=== PATIENT | female | born 1990 | race Caucasian/White ===

== ENCOUNTER 2017-04-07 14:00 | Emergency (ER) | payer OTHER ==
[~2017-04-07] VITALS: Ht 160 cm; Wt 106.6 kg
[~2017-04-07 14:00] MED LIST: AMOXICILLIN500 MG PO; AMOXIL500 MG PO; ANAPROX DS550 MG PO; ANUSOL-HC2.5% RC; ATIVAN0.5 MG PO; BACTRIM DS 8001 TA1 PO; BENADRYL ALLERG25 M5 PO; BENADRYL50 MG PO; BIAXIN500 MG PO; BIRTH CONTROL1 EAC1 PO; CIPRO500 MG PO; CLARITIN-D 12 H1 TAB PO; CLARITIN10 MG PO; DAYPRO600 M1 PO; DICYCLOMINE HCL10 MG PO; DOXYCYCLINE HY100 M3 PO; DUONEB 3 MG/3 ML3 M1 INH; ESTRACE1 MG PO; FLAGYL500 MG PO; FLEXERIL10 MG PO; FLOMAX0.4 MG PO; HYDROCODONE BIT1 T11 PO; IBU800 M1 PO; KEFLEX500 MG PO; LIDEX0.05% T; MACROBID100 M1 PO; MOTRIN800 MG PO; NAPROSYN500 MG PO; NKHM; PEN-VEE K500 MG PO; PEPCID AC10 M2 PO; PERCOCET 325 MG1 TA2 PO; PHENERGAN25 M1 PO; PONSTEL250 MG PO; PREDNICOT20 MG PO; PREDNISONE10 MG PO; PROPRANOLOL HYD60 MG PO; PROZAC10 MG PO; ROBAXIN750 MG PO; TRAMADOL HCL50 MG PO; TYLENOL W/CODEI1 TA2 PO; TYLENOL325 M1 PO; TYLENOL325 M2 PO; TYLENOL500 MG PO; ULTRAM50 MG PO; VENLAFAXINE150 MG PO; VICODIN 5/500 505 MG PO; VOLTAREN50 M1 PO; YASMIN 3 MG-0.01 TA1 PO; ZITHROMAX Z PA250 MG PO; ZOFRAN ODT4 MG SL; ZOFRAN4 MG PO; ZOFRAN4 MG SL; [UNRECOGNIZED DRUG - CODE] PO
[2017-04-07 14:05] VITALS: BP 140/102
== END 2017-04-07 16:10 | disposition home or self-care (01) ==
LOC: ED 14:00
DX: R51 Headache (principal); R11.2 Nausea with vomiting, unspecified; Z88.6 Allergy status to analgesic agent

== ENCOUNTER 2017-04-29 18:58 | Emergency (ER) | payer OTHER ==
[~2017-04-29] VITALS: Ht 167.6 cm; Wt 90.7 kg
[2017-04-29 19:05] VITALS: BP 146/100
[2017-04-29] MEDS ORDERED: ROBITUSSIN DM 105 ML PO (20:13)
[2017-04-29] MEDS ORDERED: MEDROL DOSEPAK4 MG PO (20:13)
[2017-04-29] MEDS ORDERED: AMOXICILLIN500 M2 PO (20:13)
== END 2017-04-29 20:17 | disposition home or self-care (01) ==
LOC: ED 18:58
DX: J01.90 Acute sinusitis, unspecified (principal); F17.200 Nicotine dependence, unspecified, uncomplicated; Z88.6 Allergy status to analgesic agent

== ENCOUNTER 2017-09-20 18:02 | Emergency (ER) | payer OTHER ==
[~2017-09-20] VITALS: Ht 160 cm; Wt 104.3 kg
[~2017-09-20 18:02] MED LIST changes: +AMOXICILLIN500 M2 PO; +MEDROL DOSEPAK4 MG PO; +ROBITUSSIN DM 105 ML PO
[2017-09-20] MEDS ORDERED: ROBITUSSIN DM 105 ML PO (19:20)
[2017-09-20] MEDS ORDERED: CLARITIN10 MG PO (19:20)
[2017-09-20] MEDS ORDERED: FLONASE ALLERG9.9 ML NAS (19:20)
[2017-09-20] MEDS ORDERED: PREDNISONE10 MG PO (19:20)
[2017-09-20 19:54] VITALS: BP 120/84
== END 2017-09-20 19:55 | disposition home or self-care (01) ==
LOC: ED 18:02
DX: J20.9 Acute bronchitis, unspecified (principal); R03.0 Elevated blood-pressure reading, without diagnosis of hypertension; F17.200 Nicotine dependence, unspecified, uncomplicated; E66.01 Morbid (severe) obesity due to excess calories; Z90.49 Acquired absence of other specified parts of digestive tract; Z98.51 Tubal ligation status; Z98.890 Other specified postprocedural states; Z79.899 Other long term (current) drug therapy; Z88.5 Allergy status to narcotic agent; Z88.6 Allergy status to analgesic agent

== ENCOUNTER → 2017-09-23 | Outpatient (CLI) | payer OTHER ==
[~2017-09-23] MED LIST changes: +FLONASE ALLERG9.9 ML NAS
== END | disposition home or self-care (01) ==
LOC: ORTHO
DX: M25.532 Pain in left wrist (principal); M25.531 Pain in right wrist; M79.641 Pain in right hand; M79.642 Pain in left hand

== ENCOUNTER 2017-10-31 19:02 | Emergency (ER) | payer OTHER ==
[~2017-10-31] VITALS: Ht 157.4 cm; Wt 102.1 kg
[2017-10-31 19:04] VITALS: BP 134/90
[2017-10-31] MEDS ORDERED: NEURONTIN600 MG PO (20:02)
[2017-11-28] MEDS ORDERED: ZOFRAN4 MG PO (09:18)
[2017-11-28] MEDS ORDERED: NORCO 5-325 TA1 EACH PO (09:18)
== END 2017-10-31 20:16 | disposition home or self-care (01) ==
LOC: ED 19:02
DX: S60.221A Contusion of right hand, initial encounter (principal); Z88.6 Allergy status to analgesic agent; Y04.0XXA Assault by unarmed brawl or fight, initial encounter; Y93.89 Activity, other specified; Y92.89 Other specified places as the place of occurrence of the external cause; Y99.8 Other external cause status

== ENCOUNTER → 2017-11-22 | Outpatient (CLI) | payer OTHER ==
[~2017-11-22] MED LIST changes: +NEURONTIN600 MG PO; +NORCO 5-325 TA1 EACH PO
[2017-11-22 12:25] LABS: BASO # 0.1 10*3/uL (0.0-0.1); BASO % 0.5 % (0.0-1.0); EOS # 0.2 10*3/uL (0.0-0.4); EOS % 1.8 % (1.0-4.0); HEMATOCRIT 45.9 % (37.0-47.0); HEMOGLOBIN 15.6 g/dl (12.0-16.0); LYMPH % 38.4 % (27.0-41.0); MEAN CORPUSCULAR HGB 29.2 pg (27.0-31.0); MONO # 0.7 10*3/uL (0.1-1.0); MONO % 5.1 % (3.0-9.0); NEUT % 53.8 % (47.0-73.0); PLATELET COUNT AUTOMATED 324 10*3/uL (130-400); RED BLOOD COUNT 5.34 10*6/uL (4.10-5.10); RED CELL DISTRI WIDTH 12.2 % (0-14.5)
[2017-11-22 12:35] LABS: BUN 15 mg/dl (7-24); CHLORIDE 105 mmol/L (98-107); CREATININE 0.83 mg/dL (0.55-1.02); POTASSIUM 3.7 mmol/L (3.5-5.1); SODIUM 140 mmol/L (136-145)
== END | disposition home or self-care (01) ==
LOC: LAB 00:01 → ORTHO 04:17
PROVIDERS: Orthopaedic Surgery
DX: Z01.818 Encounter for other preprocedural examination (principal); G56.01 Carpal tunnel syndrome, right upper limb

== ENCOUNTER → 2017-11-28 | Day surgery (SDC) | payer OTHER ==
[2017-11-21 13:30] VITALS: BP 147/100
[~2017-11-28] VITALS: Ht 157.4 cm; Wt 104.3 kg
[2017-11-28] VITALS (9 sets, daily range): BP systolic 126–141; BP diastolic 82–99
[2017-11-28 07:41] LABS: HEMATOCRIT 43.3 % (37.0-47.0); HEMOGLOBIN 15.2 g/dl (12.0-16.0); MEAN CELL VOLUME 84.4 fl (81.0-99.0); MEAN CORPUSCULAR HGB 29.6 pg (27.0-31.0); MEAN CORPUSCULAR HGB CONC 35.1 g/dl (33.0-37.0); MEAN PLATELET VOLUME 9.1 fl (9.6-12.3); PLATELET COUNT AUTOMATED 274 10*3/uL (130-400); RED BLOOD COUNT 5.13 10*6/uL (4.10-5.10); RED CELL DISTRI WIDTH 12.3 % (0-14.5)
[2017-11-28 07:58] LABS: ATYPICAL LYMPHS 1 % (0-0); TOTAL CELLS COUNTED 100 #CELLS
[2017-11-28 07:59] LABS: PLATELET SUFFICIENCY NORMAL (NORMAL)
== END | disposition home or self-care (01) ==
LOC: SDC 11-21 12:30
PROVIDERS: Orthopaedic Surgery
DX: G56.01 Carpal tunnel syndrome, right upper limb (principal); I10 Essential (primary) hypertension; F32.9 Major depressive disorder, single episode, unspecified; F41.9 Anxiety disorder, unspecified; F17.210 Nicotine dependence, cigarettes, uncomplicated; E66.01 Morbid (severe) obesity due to excess calories; Z90.49 Acquired absence of other specified parts of digestive tract; Z98.890 Other specified postprocedural states; Z88.8 Allergy status to other drugs, medicaments and biological substances; Z90.710 Acquired absence of both cervix and uterus; Z79.899 Other long term (current) drug therapy; Z68.41 Body mass index [BMI] 40.0-44.9, adult; Z82.3 Family history of stroke; Z82.49 Family history of ischemic heart disease and other diseases of the circulatory system; Z83.3 Family history of diabetes mellitus

== ENCOUNTER 2018-01-30 10:24 | Emergency (ER) | payer OTHER ==
[~2018-01-30] VITALS: Ht 157.4 cm; Wt 99.8 kg
[2018-01-30 10:25] VITALS: BP 138/103
[2018-01-30] MEDS ORDERED: PREDNISONE1 MG PO (10:32)
[2018-01-30] MEDS ORDERED: ZITHROMAX1 GM PO (10:32)
[2018-01-30] MEDS ORDERED: PREDNISONE20 M1 PO (12:28)
== END 2018-01-30 12:44 | disposition home or self-care (01) ==
LOC: ED 10:24
DX: J45.909 Unspecified asthma, uncomplicated (principal); E66.01 Morbid (severe) obesity due to excess calories; F17.200 Nicotine dependence, unspecified, uncomplicated; Z88.6 Allergy status to analgesic agent; Z79.2 Long term (current) use of antibiotics; Z79.899 Other long term (current) drug therapy; Z90.49 Acquired absence of other specified parts of digestive tract; Z98.51 Tubal ligation status; Z90.721 Acquired absence of ovaries, unilateral

== ENCOUNTER 2018-04-08 07:17 | Inpatient (IN) | payer OTHER ==
[~2018-04-08] VITALS: Ht 157.4 cm; Wt 117.1 kg
[~2018-04-08 07:17] MED LIST changes: +PREDNISONE1 MG PO; +PREDNISONE20 M1 PO; +ZITHROMAX1 GM PO
[2018-04-08 07:19] VITALS: BP 153/109
[2018-04-08 07:27] VITALS: BP 136/80
[2018-04-08 07:33] LABS: BILIRUBIN NEGATIVE (NEGATIVE); BLOOD NEGATIVE (NEGATIVE); CLARITY SL CLOUDY (CLEAR); COLOR YELLOW (YELLOW); GLUCOSE NEGATIVE (NEGATIVE); KETONE NEGATIVE (NEGATIVE); LEUKO ESTERASE NEGATIVE (NEGATIVE); NITRITE NEGATIVE (NEGATIVE); SPECIFIC GRAVITY >= 1.030 (1.005-1.030); UROBILINOGEN 0.2 E.U./dl (0.2-1.0)
[2018-04-08 07:49] LABS: BACTERIA TRACE; MUCOUS 1+; WBC 0-2 wbc/hpf (0-5)
[2018-04-08 08:35] LABS: BASO # 0.1 10*3/uL (0.0-0.1); BASO % 0.5 % (0.0-1.0); EOS # 0.2 10*3/uL (0.0-0.4); EOS % 1.5 % (1.0-4.0); HEMATOCRIT 44.6 % (37.0-47.0); HEMOGLOBIN 15.7 g/dl (12.0-16.0); LYMPH # 4.9 10*3/uL (1.3-4.4); LYMPH % 37.5 % (27.0-41.0); MEAN CELL VOLUME 85.1 fl (81.0-99.0); MEAN CORPUSCULAR HGB CONC 35.2 g/dl (33.0-37.0); MEAN PLATELET VOLUME 9.2 fl (9.6-12.3); MONO # 0.6 10*3/uL (0.1-1.0); MONO % 4.4 % (3.0-9.0); NEUT # 7.3 10*3/uL (2.3-7.9); NEUT % 55.9 % (47.0-73.0); PLATELET COUNT AUTOMATED 307 10*3/uL (130-400); RED BLOOD COUNT 5.24 10*6/uL (4.10-5.10); RED CELL DISTRI WIDTH 12.2 % (0-14.5); WHITE BLOOD COUNT 13.1 10*3/uL (4.8-10.8)
[2018-04-08 08:54] LABS: ALBUMIN 3.8 gm/dl (3.1-4.5); ALKALINE PHOSPHATASE 131 U/L (45-117); BUN 18 mg/dl (7-24); CHLORIDE 105 mmol/L (98-107); CREATININE 0.77 mg/dL (0.55-1.02); LIPASE 139 U/L (73-393); POTASSIUM 4.1 mmol/L (3.5-5.1); SGOT/AST 20 IU/L (3-35); SGPT/ALT 44 U/L (12-78); SODIUM 136 mmol/L (136-145); TOTAL PROTEIN 7.8 gm/dL (6.4-8.2)
[2018-04-08 10:24] VITALS: BP 113/81
[2018-04-08 12:08] VITALS: BP 116/78
[2018-04-08 12:30] VITALS: BP 105/63
[2018-04-08 20:00] VITALS: BP 134/100
[2018-04-09] VITALS: BP 128/89
[2018-04-09 06:28] LABS: BASO % 0.5 % (0.0-1.0); EOS # 0.2 10*3/uL (0.0-0.4); EOS % 1.9 % (1.0-4.0); LYMPH % 37.3 % (27.0-41.0); MEAN CELL VOLUME 86.6 fl (81.0-99.0); MEAN CORPUSCULAR HGB 29.2 pg (27.0-31.0); MEAN CORPUSCULAR HGB CONC 33.8 g/dl (33.0-37.0); MEAN PLATELET VOLUME 9.3 fl (9.6-12.3); MONO # 0.4 10*3/uL (0.1-1.0); MONO % 5.2 % (3.0-9.0); NEUT # 4.4 10*3/uL (2.3-7.9); PLATELET COUNT AUTOMATED 262 10*3/uL (130-400); RED BLOOD COUNT 4.62 10*6/uL (4.10-5.10); RED CELL DISTRI WIDTH 12.3 % (0-14.5)
[2018-04-09 06:30] LABS: HEMOGLOBIN 13.5 g/dl (12.0-16.0)
[2018-04-09 06:36] LABS: ACT PARTIAL THROMBO TIME 26.1 SECONDS (20.8-31.5)
[2018-04-09 06:47] LABS: BUN 13 mg/dl (7-24); CHLORIDE 106 mmol/L (98-107); CREATININE 0.72 mg/dL (0.55-1.02); POTASSIUM 3.7 mmol/L (3.5-5.1); SODIUM 140 mmol/L (136-145); TRIGLYCERIDES 229 mg/dl (<150); VLDL CHOLESTEROL 46 mg/dL (6-40)
[2018-04-09 06:55] LABS: CHOLESTEROL 156 mg/dL (<200); HDL CHOLESTEROL 32 mg/dl (40-60); LDL CHOLESTEROL 78 mg/dL (9-159)
[2018-04-09 08:00] VITALS: BP 122/86
[2018-04-09 10:36] LABS: VITAMIN D, 25-HYDROXY 19.4 ng/mL (30-100)
[2018-04-09 12:00] VITALS: BP 129/86
[2018-04-09] MEDS ORDERED: PHENERGAN25 M3 PO (14:50)
[2018-04-09] MEDS ORDERED: VITAMIN D31000 UNI1 PO (14:50)
[2018-04-09] MEDS ORDERED: HYDROCODONE-AC1 EAC1 PO (14:50)
[2018-04-09] MEDS ORDERED: PRAVACHOL20 MG PO (14:50)
== END 2018-04-09 16:10 | disposition home or self-care (01) | DRG 872 ==
LOC: ED 07:17 → EDHOLD 11:56 → 5E 11:56
PROVIDERS: Emergency Medicine; Internal Medicine
DX: A41.9 Sepsis, unspecified organism (principal); E44.1 Mild protein-calorie malnutrition; Z68.42 Body mass index [BMI] 45.0-49.9, adult; F17.200 Nicotine dependence, unspecified, uncomplicated; E83.41 Hypermagnesemia; F41.0 Panic disorder [episodic paroxysmal anxiety]; K76.0 Fatty (change of) liver, not elsewhere classified; F12.10 Cannabis abuse, uncomplicated; K29.70 Gastritis, unspecified, without bleeding; E66.01 Morbid (severe) obesity due to excess calories; Z98.51 Tubal ligation status; Z90.721 Acquired absence of ovaries, unilateral; Z82.3 Family history of stroke; Z90.49 Acquired absence of other specified parts of digestive tract; Z82.5 Family history of asthma and other chronic lower respiratory diseases; Z83.3 Family history of diabetes mellitus; Z82.49 Family history of ischemic heart disease and other diseases of the circulatory system; Z88.8 Allergy status to other drugs, medicaments and biological substances; Z71.6 Tobacco abuse counseling

== ENCOUNTER 2021-01-07 17:18 | Emergency (ER) | payer OTHER ==
[~2021-01-07 17:18] MED LIST changes: +HYDROCODONE-AC1 EAC1 PO; +PHENERGAN25 M3 PO; +PRAVACHOL20 MG PO; +VITAMIN D31000 UNI1 PO
[2021-01-07 20:00] VITALS: BP 132/86
== END 2021-01-07 20:40 | disposition home or self-care (01) ==
LOC: ED 17:18
DX: S06.0X0A Concussion without loss of consciousness, initial encounter (principal); S01.01XA Laceration without foreign body of scalp, initial encounter; M25.511 Pain in right shoulder; M54.2 Cervicalgia; R42 Dizziness and giddiness; E66.01 Morbid (severe) obesity due to excess calories; F17.200 Nicotine dependence, unspecified, uncomplicated; Z88.6 Allergy status to analgesic agent; Z88.8 Allergy status to other drugs, medicaments and biological substances; Z79.899 Other long term (current) drug therapy; Z87.42 Personal history of other diseases of the female genital tract; Z90.49 Acquired absence of other specified parts of digestive tract; Z98.51 Tubal ligation status; Z90.711 Acquired absence of uterus with remaining cervical stump; V80.010A Animal-rider injured by fall from or being thrown from horse in noncollision accident, initial encounter; Y93.52 Activity, horseback riding; Y92.89 Other specified places as the place of occurrence of the external cause; Y99.8 Other external cause status

== ENCOUNTER → 2021-11-28 | Outpatient (CLI) | payer BC, OTHER ==
[2021-11-28 15:57] LABS: HEMATOCRIT 46.4 % (37.0-47.0); MEAN CELL VOLUME 85.3 fl (81.0-99.0); MEAN CORPUSCULAR HGB 29.8 pg (27.0-31.0); MEAN CORPUSCULAR HGB CONC 34.9 g/dl (33.0-37.0); RED BLOOD COUNT 5.44 10*6/uL (4.10-5.10); RED CELL DISTRI WIDTH 12.3 % (0-14.5); WHITE BLOOD COUNT 12.4 10*3/uL (4.8-10.8)
[2021-11-28 16:12] LABS: ALKALINE PHOSPHATASE 116 U/L (45-117); BUN 12 mg/dl (7-24); CHLORIDE 105 mmol/L (98-107); CHOLESTEROL 189 mg/dL (<200); CREATININE 0.89 mg/dL (0.55-1.02); FREE T4 1.03 ng/dl (0.76-1.46); LDL CHOLESTEROL 98 mg/dL (9-159); POTASSIUM 3.7 mmol/L (3.5-5.1); SGOT/AST 15 IU/L (3-35); SGPT/ALT 27 U/L (12-78); SODIUM 139 mmol/L (136-145); TOTAL PROTEIN 7.8 gm/dL (6.4-8.2); TRIGLYCERIDES 269 mg/dl (<150)
[2021-11-28 16:17] LABS: THYROID STIM HORMONE (HS) 0.733 uIU/ml (0.358-4.75)
[2021-11-28 16:42] LABS: VITAMIN D, 25-HYDROXY 23.8 ng/mL (30-100)
== END | disposition home or self-care (01) ==
LOC: LAB 15:25
PROVIDERS: ATTEND Family Medicine
DX: E55.9 Vitamin D deficiency, unspecified (principal); R53.83 Other fatigue